=== PATIENT | female | born 1970 | race Caucasian/White ===

== ENCOUNTER → 2016-12-17 | Outpatient (CLI) | payer BC, OTHER ==
--- NOTE | 2016-12-17 17:02 | MA ---
Screening Digital Mammogram with iCAD Analysis Clinical History: 46-year-old female with no family history of breast cancer, presents today for [facility] annual mammographic screening. Technique: Standard cephalocaudal projections are obtained, as well as supplementary exaggerated cran iocaudal views. Digital breast tomosynthesis was performed in the MLO projection, with reconstruction at a 1.0 mm slice thickness, and composite MLO views were then reconstructed. This examination is pr ocessed by the iCAD computer aided detection system. Comparison Studies: Bilateral digital screening mammography, dated December 12, 2015, December 06, 2014 , November 02, 2013, October 20, 2012, and October 15, 2011. Breast Density: Type D (Extremely dense). Findings: CAD was reviewed. There are no new masses, suspicious microcalcifications, or secondary sig ns of malignancy identified. There has been no significant change in the appearance of either breast. Impression: Negative mammography. BI-RADS Category 1. Recommendation: Routine mammographic screening in one year, as long as physical examination is negati ve in this patient with an extremely dense breast parenchyma. [facility] result letter to the patient. Negative mammography should not preclude additional workup of a clinically suspicious finding. The patient's information is entered into a reminder system with a target due date for her next mammo gram.
== END ==
LOC: FIMAGING 08:27
PROVIDERS: ATTEND Family Medicine
DX: Z12.31 Encounter for screening mammogram for malignant neoplasm of breast (principal)
CPT/HCPCS: G0202

== ENCOUNTER → 2017-12-30 | Outpatient (CLI) | payer BC, OTHER | LOC: FIMAGING 07:42 | PROVIDERS: ATTEND Family Medicine | DX: Z12.31 Encounter for screening mammogram for malignant neoplasm of breast (principal) ==

== ENCOUNTER → 2018-12-31 | Outpatient (CLI) | payer BC | LOC: FIMAGING 13:32 | PROVIDERS: ATTEND Family Medicine | DX: Z12.31 Encounter for screening mammogram for malignant neoplasm of breast (principal) ==